=== PATIENT | male | born 1965 | race Caucasian/White ===

== ENCOUNTER 2016-06-26 19:45 | Emergency (ER) | payer BC, OTHER ==
[2016-06-26] MEDS ORDERED: ACETAMINOPHEN 325 MG TABLET ONE (20:40)
== END 2016-06-26 21:13 | disposition home or self-care (01) ==
LOC: ED 19:45
DX: K08.89 Other specified disorders of teeth and supporting structures (principal); F17.210 Nicotine dependence, cigarettes, uncomplicated
CPT/HCPCS: 99282 ×2; A9270